=== PATIENT | female | born 1980 | race African-American/Black ===

== ENCOUNTER 2017-04-04 06:25 | Emergency (ER) | payer MEDICAID ==
[~2017-04-04] VITALS: Ht 167.6 cm; Wt 55.0 kg
[~2017-04-04 06:25] MED LIST: ALBU2.5V13 NEB
[2017-04-04] MEDS ORDERED: IPRATROPIUM/ALBUTEROL 0.5-3(2.5)MG/3ML NEB HHN ONE (07:15)
[2017-04-04] MEDS ORDERED: PREDNISONE 20MG TABLET PO ONE (07:15)
[2017-04-04 08:30] VITALS: BP 132/79
== END 2017-04-04 09:00 | disposition home or self-care (01) ==
LOC: ER 06:28
DX: J45.901 Unspecified asthma with (acute) exacerbation (principal)
CPT/HCPCS: 99283; J7512; J7620